=== PATIENT | male | born 1970 | race African-American/Black ===

== ENCOUNTER 2018-08-29 00:21 | Emergency (ER) | payer OTHER, BC ==
[~2018-08-29] VITALS: Ht 182.9 cm; Wt 80.0 kg
[2018-08-29] MEDS ORDERED: SODIUM CHLORIDE 0.9% 1,000 ML IV ONE (01:35)
[2018-08-29] MEDS ORDERED: ONDANSETRON 4MG ODT PO STA (01:35)
[2018-08-29] MEDS ORDERED: KETOROLAC 30MG/ML VIAL IV STA (01:35)
[2018-08-29] MEDS ORDERED: MORPHINE SULFATE 4 MG/ML CPJ (NOT FOR IM USE) IV STA (01:35)
[2018-08-29 02:03] LABS: BASOPHILS % 1.1 % (0.0-2.0); EOSINOPHILS % 4.5 % (0.0-5.0); HEMATOCRIT. 51.4 % (42.0-52.0); HEMOGLOBIN. 17.7 g/dL (14.0-18.0); LYMPHOCYTES % 22.5 % (20.0-50.0); MEAN CORPUSCULAR HEMOGLOBIN 32.6 pg (28.0-32.0); MEAN CORPUSCULAR VOLUME 94.9 fL (80.0-94.0); MEAN PLATELET VOLUME 9.1 fl (7.4-10.4); MONOCYTES % 12.1 % (2.0-8.0); NEUTROPHILS % 59.8 % (40.0-76.0); PLATELET 275 x1000/uL (130-400); RED BLOOD CELL COUNT 5.42 mill/uL (4.7-6.1); RED CELL DISTRIBUTION WIDTH 13.1 % (11.6-14.6)
[2018-08-29 02:07] LABS: CHLORIDE 102 mEq/L (98-107)
[2018-08-29 02:23] LABS: CLARITY URINE CLEAR (CLEAR); COLOR URINE YELLOW (YELLOW); KETONES URINE NEGATIVE (NEGATIVE); LEUKOCYTE ESTERASE URINE NEGATIVE (NEGATIVE); NITRITE URINE NEGATIVE (NEGATIVE); OCCULT BLOOD URINE NEGATIVE (NEGATIVE); PROTEIN URINE NEGATIVE (NEGATIVE); SPECIFIC GRAVITY URINE 1.003 (1.005-1.030); UROBILINOGEN URINE 0.2 E.U./dL (0.2-1.0)
[2018-08-29] MEDS ORDERED: ASPIRIN 325MG EC TABLET PO ONE (03:00)
[2018-08-29 04:38] VITALS: BP 154/97
== END 2018-08-29 04:42 | disposition short-term general hospital (02) ==
LOC: ER 00:21
DX: R07.9 Chest pain, unspecified (principal); R51 Headache; M54.30 Sciatica, unspecified side; E11.9 Type 2 diabetes mellitus without complications; I10 Essential (primary) hypertension
CPT/HCPCS: 36415; 71045; 80053; 81003; 84484; 85025; 93005; 96374; 96375; 99285; J1885; J2270; J7030; Q0162; Z7610